=== PATIENT | female | born 1960 | race Caucasian/White ===

== ENCOUNTER → 2024-07-07 08:09 | Outpatient (REF) | payer OTHER, SELFPAY | LOC: DHCBC/DCA 08:09 | PROVIDERS: ATTENDING PHYSICIAN Internal Medicine Clinical Cardiac Electrophysiology; FAMILY PHYSICIAN Nurse Practitioner Adult Health | DX: R07.9 Chest pain, unspecified (principal) | CPT/HCPCS: 78452; 93017; A9500 ==